=== PATIENT | male | born 1985 | race Caucasian/White ===

== ENCOUNTER → 2022-06-20 | Emergency (ER) | payer OTHER ==
[~2022-06-20] VITALS: Ht 185.4 cm; Wt 77.1 kg
[~2022-06-20] MED LIST: CLONAZEPAM2 M1 PO; DICLOFENAC-MIS1 EAC1 PO; SEROQUEL XR200 MG PO; ZOLOFT100 MG
== END | disposition left against medical advice (07) ==
LOC: ER 10:08
DX: M54.50 Low back pain, unspecified (principal)

== ENCOUNTER 2022-06-21 07:23 | Emergency (ER) | payer OTHER ==
[~2022-06-21] VITALS: Ht 185.4 cm; Wt 77.1 kg
== END 2022-06-21 13:56 | disposition left against medical advice (07) ==
LOC: ER 07:23
DX: M54.59 Other low back pain (principal); I10 Essential (primary) hypertension